=== PATIENT | female | born 1945 | race Caucasian/White ===

== ENCOUNTER 2019-12-06 15:53 | Inpatient (IN) | payer MEDICARE ==
[2019-12-06] MEDS ORDERED: traMADol HCl 50 MG TAB PO PRN ×2 (16:56→16:59)
[2019-12-06] MEDS ORDERED: Bisacodyl 10 MG SUPP PR PRN (16:56)
[2019-12-06] MEDS: traMADol HCl 50 MG TAB PO PRN (18:21)
[2019-12-06] MEDS ORDERED: Insulin Regular 300 UNITS/3 ML VIAL SC SCH (21:00)
[2019-12-06] MEDS ORDERED: Dextrose 5% in Water 1,000 ML IV PRN (21:45)
[2019-12-06] MEDS ORDERED: Dextrose 50% Abboject 50 ML SYRINGE IVP PRN (21:45)
[2019-12-06] MEDS: Amitriptyline HCl 25 MG TAB PO SCH (22:00)
[2019-12-06] MEDS: Digoxin 0.125 MG TAB PO SCH (22:00)
[2019-12-06] MEDS: Losartan Potassium 50 MG TAB PO SCH (22:00)
[2019-12-06] MEDS: metFORMIN 500 MG TAB PO SCH (22:00)
[2019-12-06] MEDS: Topiramate 25 MG TAB PO SCH (22:00)
[2019-12-07] MEDS: traMADol HCl 50 MG TAB PO PRN (00:45)
[2019-12-07] MEDS: Levothyroxine Sodium 88 MCG TAB PO SCH (06:08)
[2019-12-07] MEDS: Insulin Regular 300 UNITS/3 ML VIAL SC PRN ×3 (06:10→17:07)
[2019-12-07] MEDS ORDERED: Ondansetron ODT 4 MG TAB PO PRN (08:23)
[2019-12-07] MEDS: Topiramate 25 MG TAB PO SCH ×2 (08:47→20:49)
[2019-12-07] MEDS: Methocarbamol 500 MG TAB PO SCH (08:47)
[2019-12-07] MEDS: metFORMIN 500 MG TAB PO SCH ×2 (08:48→20:49)
[2019-12-07] MEDS: Gabapentin 400 MG CAP PO SCH (08:48)
[2019-12-07] MEDS: Furosemide 40 MG TAB PO SCH (08:48)
[2019-12-07] MEDS: CeleCOXIB 100 MG CAP PO SCH (08:55)
[2019-12-07] MEDS: Acetaminophen 325 MG TAB PO PRN (14:43)
[2019-12-07] MEDS: Simvastatin 10 MG TAB PO SCH (17:08)
[2019-12-07] MEDS: Losartan Potassium 50 MG TAB PO SCH (20:49)
[2019-12-07] MEDS: Amitriptyline HCl 25 MG TAB PO SCH (20:50)
[2019-12-07] MEDS: Digoxin 0.125 MG TAB PO SCH (20:50)
--- NOTE | 2019-12-07 21:22 | HP ---
HISTORY OF PRESENT ILLNESS: The patient is a 74-year-old female with past medical history of hypertension; diabetes 2, on insulin; atrial fibrillation, not on anticoagulation at this time; hyperlipidemia; GERD, with a history of lung cancer who presented originally to [place], [place], for a scheduled right shoulder revision surgery by Dr. Palacios. She had the surgery done at [facility] in [place] with no complications. She recovered well from the surgery and was having physical therapy and occupational therapy in hospital. She was transferred here to [facility] for continued inpatient physical therapy. No acute events in her previous hospital stay. She had no fevers and COVID test was negative. PAST MEDICAL HISTORY: Diabetes type 2, on insulin; atrial fibrillation; hypertension; osteoarthritis; DAVIS with CPAP usage; pancreatic cyst; history of lung cancer. PAST SURGICAL HISTORY: Appendectomy, hysterectomy, bilateral total knee replacement, history of right lung lobectomy, carpal tunnel surgery, multiple back surgeries. FAMILY HISTORY: Noncontributory. SOCIAL HISTORY: Denies current or former tobacco use. The patient reports social alcohol use and denies any illicit drug use. She is and has 1 son. She lives alone at home in [place], [place], and she is retired. Her previous activity level was independent ambulation. She was able to perform all of her ADLs with no limitations. REVIEW OF SYSTEMS: GENERAL: Denies any fever, chills, weight loss, weight gain. Denies any acute distress. HEENT: Denies any rhinorrhea or cough. Denies any vision changes or tinnitus. RESPIRATORY: Denies any shortness of breath, dyspnea on exertion. CARDIAC: Denies any palpitations, chest pain, edema. GASTROINTESTINAL: Denies nausea, vomiting, diarrhea. Does report a pancreatic cyst that was found on previous hospitalization. HOME MEDICATIONS: 1. Celecoxib 200 p.o. q.a.m. 2. Diltiazem 24-hour 180 mg p.o. daily. 3. Trulicity 0.5 mg subcu q.7 days. 4. Losartan 50 mg p.o. q.p.m. 5. Lovastatin 20 mg p.o. q.p.m. with meals. 6. Metformin 1000 mg p.o. b.i.d. 7. Robaxin 750 p.o. daily. 8. Omeprazole 40 mg p.o. daily. 9. Gabapentin 400 p.o. daily. 10. Topamax 25 mg p.o. b.i.d. 11. Amitriptyline 25 mg p.o. at bedtime. 12. Glycopyrrolate 1 mg. 13. Zolpidem 5 mg p.o. p.r.n. insomnia. 14. Metoprolol 25 p.o. b.i.d. PHYSICAL EXAMINATION: VITALS: Temperature 98.4, pulse 72, respiratory rate is 18, O2 at 94% on room air. Her initial blood pressure was 190/82 with repeat blood pressure 164/70. GENERAL: A well-appearing, well-developed 74-year-old female, in no acute distress. The patient is sitting up in her chair, ready for physical therapy. HEENT: Normocephalic, atraumatic. No rhinorrhea. Hearing grossly intact. NECK: Supple. No masses or goiters. RESPIRATIONS: Clear to auscultation bilaterally. No wheezes, rhonchi. CARDIOVASCULAR: Regular rate and rhythm. No murmurs, gallops, or rubs. No edema. No JVD. ABDOMEN: Soft, nontender to palpation. Bowel sounds positive in all 4 quadrants. No masses felt. Right arm is in a sling when I examined the patient. Right Shoulder incision site is clean, dry, and intact. ASSESSMENT: 1. Insulin-dependent diabetes type 2. 2. Hypertension. 3. Atrial fibrillation. 4. Gastroesophageal reflux disease. 5. Weakness and deconditioning secondary to right shoulder replacement requiring PT and OT services. 6. Obstructive sleep apnea with CPAP usage. PLAN: 1. A pleasant 74-year-old female who is status post right shoulder replacement. She is doing well, but requiring continued PT and OT services to get back to her previous level of functioning after this surgery. 2. I started her on insulin sliding scale. The patient takes a sliding scale of Humulin at home depending on her blood sugars. We will continue to monitor blood sugars here and may start her on a long-acting insulin as needed. CbGs at bedtime and q.a.c. Diabetic diet. 3. Continue all medications for atrial fibrillation. Patient is currently rate controlled. Monitor heart rate for any changes. 4. Gastroesophageal reflux disease. Continue GI prophylaxis. 5. Continue antihypertensives. Patient is currently slightly hypertensive. We will continue to monitor and need to add medications as required. 6. PT/OT evaluations. 7. Routine wound care to be for performed by Nursing. 8. The patient will need to have a followup on her newly found pancreatic cyst as an outpatient. We will monitor for any symptoms of exacerbation for this. 9. Continue to monitor her progression with PT and OT. Discharge planning ongoing with patient being discharged home versus SNF as she lives alone and would need extra help. We need to discuss discharge planning with the patient. Job ID: [id number] [facility]ENTER[facility]anna
[2019-12-08 05:29] LABS: #Basophils 0.1 thou/uL (0.0-0.2); #Eosinphils 0.3 thou/uL (0.0-0.7); #Lymphocytes 1.5 thou/uL (1.20-3.40); #Monocytes 0.5 thou/uL (0.11-0.59); #Neutrophils 5.1 thou/uL (1.40-6.50); %Basophils 0.7 % (0.0-1.0); %Eosinophils 3.6 % (0.0-10.0); %Lymphocytes 20.4 % (21.0-51.0); %Monocytes 7.2 % (0.0-10.0); %Neutrophils 68.1 % (42.0-75.0); Hemoglobin 11.6 g/dL (12.0-16.0); Mean Corpuscular HGB CONC 30.6 g/dL (32.0-36.0); Mean Corpuscular Hemoglobin 28.3 pg (27.0-31.0); Mean Corpuscular Volume 92.6 fL (78.0-98.0); Mean Platelet Volume 7.3 fL (7.4-10.4); Platelet Count 273 thou/uL (130-400); RBC Distribution Width 12.8 % (11.5-14.5); White Blood Cell (WBC) Count 7.5 thou/uL (4.8-10.8)
[2019-12-08 05:43] LABS: Anion Gap 14 mmol/L (10-20); BUN (Urea Nitrogen) 18 mg/dL (9.8-20.1); Calc. Creatinine Clearance 95 mL/min (70-130); Calcium 9.2 mg/dL (7.8-10.44); Carbon Dioxide 26 mmol/L (23-31); Chloride 100 mmol/L (98-107); Estimated GFR-MDRD 75; Glucose 165 mg/dL (83-110); Potassium 4.2 mmol/L (3.5-5.1); Sodium 136 mmol/L (136-145)
[2019-12-08] MEDS: Levothyroxine Sodium 88 MCG TAB PO SCH (05:49)
[2019-12-08] MEDS: Insulin Regular 300 UNITS/3 ML VIAL SC PRN ×2 (05:49→17:29)
[2019-12-08] MEDS: Topiramate 25 MG TAB PO SCH ×2 (08:32→20:00)
[2019-12-08] MEDS: Acetaminophen 325 MG TAB PO PRN (08:32)
[2019-12-08] MEDS: Methocarbamol 500 MG TAB PO SCH (08:32)
[2019-12-08] MEDS: CeleCOXIB 100 MG CAP PO SCH (08:33)
[2019-12-08] MEDS: Gabapentin 400 MG CAP PO SCH (08:33)
[2019-12-08] MEDS: metFORMIN 500 MG TAB PO SCH ×2 (08:33→20:00)
[2019-12-08] MEDS: Furosemide 40 MG TAB PO SCH (08:33)
[2019-12-08] MEDS: Simvastatin 10 MG TAB PO SCH ×2 (17:05→20:04)
[2019-12-08] MEDS: Amitriptyline HCl 25 MG TAB PO SCH (20:00)
[2019-12-08] MEDS: Digoxin 0.125 MG TAB PO SCH (20:00)
[2019-12-08] MEDS: Losartan Potassium 50 MG TAB PO SCH (20:01)
[2019-12-08] MEDS: traMADol HCl 50 MG TAB PO PRN (20:01)
[2019-12-09] MEDS: traMADol HCl 50 MG TAB PO PRN (03:22)
[2019-12-09] MEDS: Acetaminophen 325 MG TAB PO PRN ×2 (03:22→16:23)
[2019-12-09] MEDS: Levothyroxine Sodium 88 MCG TAB PO SCH (05:52)
[2019-12-09] MEDS: Insulin Regular 300 UNITS/3 ML VIAL SC PRN ×2 (05:52→12:30)
[2019-12-09] MEDS: Furosemide 40 MG TAB PO SCH (08:50)
[2019-12-09] MEDS: Topiramate 25 MG TAB PO SCH ×2 (08:50→20:58)
[2019-12-09] MEDS: Gabapentin 400 MG CAP PO SCH (08:50)
[2019-12-09] MEDS: metFORMIN 500 MG TAB PO SCH ×2 (08:50→20:58)
[2019-12-09] MEDS: Methocarbamol 500 MG TAB PO SCH (08:51)
[2019-12-09] MEDS: CeleCOXIB 100 MG CAP PO SCH (08:52)
--- NOTE | 2019-12-09 10:59 | PRG ---
DATE OF SERVICE: 12/08/[address] Jordy Nair. SUBJECTIVE: The patient is up out of the room and ambulating. She is here for PT for right shoulder revision surgery. She has type 2 diabetes, being monitored with Accu-Cheks, on sliding scale. She has hypertension, atrial fibrillation on rate control only. No history of recent or distant transient ischemic attack or cerebrovascular accident . OBJECTIVE: VITAL SIGNS: Blood pressure is 171/84, temperature is 98, pulse 71, respirations 18, and O2 saturations 95% on room air. LABORATORY DATA: Laboratory show the Accu-Cheks not transferring to [employer], but are less than 200. Fasting glucose this morning was 165. Sodium 136, potassium 4.2, chloride 100, bicarb 26, BUN 18, creatinine 0.75. White count 7500, hematocrit 37, and hemoglobin 11.6. ASSESSMENT: 1. shoulder revision. 2. Type 2 diabetes with fair control. 3. Hypertension with inadequate control on metoprolol and losartan. Plan, increase losartan to 100 mg nightly. 4. Continue Accu-Cheks with moderate sliding scale and metformin, and may need to add another oral hypoglycemic. 5. Obstructive sleep apnea, on CPAP. 6. Atrial fibrillation on rate control, no anticoagulation. PLAN: 1. Continue Accu-Cheks and sliding scale, metformin, and Trulicity. 2. Continue to monitor and control blood pressure. 3. Continue rate control and monitor for need for anticoagulation of atrial fibrillation. 4. Continue pain relief as needed for right shoulder replacement and PT/OT. 5. Continue to stress CPAP for obstructive sleep apnea. Job ID: [id number]
[2019-12-09] MEDS: Simvastatin 10 MG TAB PO SCH (16:23)
[2019-12-09 18:25] VITALS: BMI 31.4
[2019-12-09] MEDS: Digoxin 0.125 MG TAB PO SCH (20:57)
[2019-12-09] MEDS: Amitriptyline HCl 25 MG TAB PO SCH (20:58)
[2019-12-09] MEDS: Losartan Potassium 50 MG TAB PO SCH (20:58)
[2019-12-10] MEDS: Insulin Regular 300 UNITS/3 ML VIAL SC PRN ×4 (05:44→20:31)
[2019-12-10] MEDS: Levothyroxine Sodium 88 MCG TAB PO SCH (05:45)
[2019-12-10] MEDS: metFORMIN 500 MG TAB PO SCH ×2 (08:22→20:35)
[2019-12-10] MEDS: Gabapentin 400 MG CAP PO SCH (08:22)
[2019-12-10] MEDS: Methocarbamol 500 MG TAB PO SCH (08:22)
[2019-12-10] MEDS: Furosemide 40 MG TAB PO SCH (08:22)
[2019-12-10] MEDS: Topiramate 25 MG TAB PO SCH ×2 (08:23→20:36)
[2019-12-10] MEDS: CeleCOXIB 100 MG CAP PO SCH (08:26)
--- NOTE | 2019-12-10 13:07 | PRG ---
DATE OF SERVICE: 12/10/2019 SUBJECTIVE: The patient is a pleasant 74-year-old female, here for inpatient PT and OT status post right shoulder replacement. She is doing well with therapy. She is up and ambulating. Working well with therapy and she is enjoying her time here. She does feel like she is getting stronger and feels like she might be ready to go tomorrow. I discussed with her that they will have a meeting with PT and OT and determine if they feel she is ready to go or if she might require more days. She expressed understanding with this and would like to know the results of that beginning tomorrow. I said that we will let her know. Otherwise, doing well, no complaints. OBJECTIVE: VITAL SIGNS: Temperature 98.2, pulse 61, respiratory rate 20, O2 sats 94% on room air, blood pressure ranging from 131/85 to 186/81. GENERAL: Well-appearing 74-year-old female, in no acute distress. HEENT: No rhinorrhea, no coughing during exam. RESPIRATORY: Clear to auscultation bilaterally. No wheezes or rhonchi. CARDIOVASCULAR: Heart rate is irregularly irregular with controlled heart rate. No JVD. No murmurs, gallops, or rubs. GI: Nontender. Bowel sounds present in all 4 quadrants. No masses. EXTREMITIES: Right shoulder in sling with right shoulder incision clean, dry, and intact. LABORATORY DATA: No new labs today. We will get labs tomorrow. Sugars have been running from 150s to 170s, she got 2 units of insulin last night per sliding scale. ASSESSMENT: 1. Status post right shoulder revision. 2. Type 2 diabetes with moderate control. 3. Hypertension with inadequate control, on metoprolol and losartan. 4. Obstructive sleep apnea. 5. Atrial fibrillation. 6. Gastroesophageal reflux disease. PLAN: 1. Continue insulin sliding scale for diabetes and continue the patient's metformin and Trulicity. 2. The patient's blood pressure continues to be elevated. We will adjust blood pressure medications today. Continue rate control with atrial fibrillation. We will need to determine when best to start the patient back on anticoagulation due to the surgery. 3. Continue pain relief and continue PT and OT. Follow up on PT/OT meeting tomorrow. 4. High blood pressure could be component of her DAVIS; however, the patient does normally use CPAP here. We will continue her oxygen per nasal cannula p.r.n. 5. The patient is doing well and progressing well in physical therapy. We will follow up with physical therapy meeting tomorrow to see what her discharge planning is and determining if she will need home health when she is discharged as well. Job ID: [id number] [facility]TDD
[2019-12-10] MEDS: Simvastatin 10 MG TAB PO SCH (17:36)
--- NOTE | 2019-12-10 19:24 | PRG ---
DATE OF SERVICE: 12/09/2019 SUBJECTIVE: The patient feels well. No complaints. Up, working with therapy today. Up, out of the room today, waiting for more therapy. OBJECTIVE: VITAL SIGNS: Show temperature 98.3, pulse 66, respirations 20, O2 saturations 96% on room air, blood pressure 131/85. Accu-Cheks ranged from 160 to 200. LUNGS: Clear. EXTREMITIES: Right shoulder is in a sling, incision clean and dry. CARDIAC: Shows irregularly irregular rhythm. ASSESSMENT: 1. Type 2 diabetes, fair control. 2. Right shoulder revision, fair control of pain. 3. Hypertension, uncontrolled, and we will possibly increase when Dr. Nair returns. 4. Obstructive sleep apnea, stable. 5. Gastroesophageal reflux, asymptomatic. 6. Dr. Nair back tonight. Job ID: [id number]
[2019-12-10] MEDS: Losartan Potassium 50 MG TAB PO SCH (20:35)
[2019-12-10] MEDS: Digoxin 0.125 MG TAB PO SCH (20:36)
[2019-12-10] MEDS: Amitriptyline HCl 25 MG TAB PO SCH (20:36)
[2019-12-11] MEDS: traMADol HCl 50 MG TAB PO PRN ×2 (04:32→21:31)
[2019-12-11] MEDS: Acetaminophen 325 MG TAB PO PRN (04:32)
[2019-12-11] MEDS: Levothyroxine Sodium 88 MCG TAB PO SCH (05:07)
[2019-12-11 05:28] LABS: #Basophils 0.1 thou/uL (0.0-0.2); #Eosinphils 0.3 thou/uL (0.0-0.7); #Lymphocytes 2.5 thou/uL (1.20-3.40); #Monocytes 0.6 thou/uL (0.11-0.59); #Neutrophils 6.8 thou/uL (1.40-6.50); %Basophils 0.9 % (0.0-1.0); %Eosinophils 2.9 % (0.0-10.0); %Lymphocytes 24.3 % (21.0-51.0); %Monocytes 6.1 % (0.0-10.0); %Neutrophils 65.8 % (42.0-75.0); Hemoglobin 11.9 g/dL (12.0-16.0); Mean Corpuscular HGB CONC 31.5 g/dL (32.0-36.0); Mean Corpuscular Volume 91.9 fL (78.0-98.0); Mean Platelet Volume 6.7 fL (7.4-10.4); Platelet Count 323 thou/uL (130-400); RBC Distribution Width 12.6 % (11.5-14.5); Red Blood Cell (RBC) Count 4.12 mill/uL (4.20-5.40); White Blood Cell (WBC) Count 10.3 thou/uL (4.8-10.8)
[2019-12-11 05:42] LABS: Anion Gap 15 mmol/L (10-20); BUN (Urea Nitrogen) 19 mg/dL (9.8-20.1); Calc. Creatinine Clearance 80 mL/min (70-130); Calcium 9.4 mg/dL (7.8-10.44); Chloride 101 mmol/L (98-107); Estimated GFR-MDRD 67; Glucose 195 mg/dL (83-110); Potassium 3.9 mmol/L (3.5-5.1); Sodium 136 mmol/L (136-145)
[2019-12-11 05:56] LABS: Carbon Dioxide 24 mmol/L (23-31)
[2019-12-11] MEDS: Insulin Regular 300 UNITS/3 ML VIAL SC PRN ×3 (05:58→20:12)
[2019-12-11] MEDS: CeleCOXIB 100 MG CAP PO SCH (08:23)
[2019-12-11] MEDS: Methocarbamol 500 MG TAB PO SCH (08:24)
[2019-12-11] MEDS: Furosemide 40 MG TAB PO SCH (08:24)
[2019-12-11] MEDS: metFORMIN 500 MG TAB PO SCH ×2 (08:24→20:14)
[2019-12-11] MEDS: Gabapentin 400 MG CAP PO SCH (08:24)
[2019-12-11] MEDS: Topiramate 25 MG TAB PO SCH ×2 (08:25→20:14)
[2019-12-11] MEDS ORDERED: Ondansetron ODT 4 MG TAB SL PRN (11:30)
[2019-12-11] MEDS ORDERED: hydrALAZINE 25 MG TAB PO SCH (12:45)
[2019-12-11] MEDS: Nystatin Cream 15 GM TUBE TOP SCH ×2 (14:09→20:16)
[2019-12-11] MEDS: Simvastatin 10 MG TAB PO SCH (17:00)
[2019-12-11] MEDS: Losartan Potassium 50 MG TAB PO SCH (20:14)
[2019-12-11] MEDS: Digoxin 0.125 MG TAB PO SCH (20:15)
[2019-12-11] MEDS: Amitriptyline HCl 25 MG TAB PO SCH (20:15)
[2019-12-12] MEDS: Insulin Regular 300 UNITS/3 ML VIAL SC PRN ×4 (05:52→20:50)
[2019-12-12] MEDS: Levothyroxine Sodium 88 MCG TAB PO SCH (05:53)
[2019-12-12] MEDS: metFORMIN 500 MG TAB PO SCH ×2 (08:37→20:51)
[2019-12-12] MEDS: Furosemide 40 MG TAB PO SCH (08:38)
[2019-12-12] MEDS: Topiramate 25 MG TAB PO SCH ×2 (08:38→20:53)
[2019-12-12] MEDS: Gabapentin 400 MG CAP PO SCH (08:38)
[2019-12-12] MEDS: Methocarbamol 500 MG TAB PO SCH (08:38)
[2019-12-12] MEDS: hydrALAZINE 25 MG TAB PO SCH (08:38)
[2019-12-12] MEDS: CeleCOXIB 100 MG CAP PO SCH (08:39)
[2019-12-12] MEDS: Nystatin Cream 15 GM TUBE TOP SCH ×2 (08:40→20:51)
[2019-12-12] MEDS: Simvastatin 10 MG TAB PO SCH (16:34)
[2019-12-12] MEDS: Losartan Potassium 50 MG TAB PO SCH (20:51)
[2019-12-12] MEDS: Digoxin 0.125 MG TAB PO SCH (20:53)
[2019-12-12] MEDS: Amitriptyline HCl 25 MG TAB PO SCH (20:53)
[2019-12-12] MEDS ORDERED: Insulin Glargine 5 UNITS in Pre-Filled Syringe 1 EACH SC SCH (21:00)
[2019-12-12] MEDS ORDERED: Lantus 1000 UNITS/10 ML VIAL SC SCH (21:00)
[2019-12-12] MEDS: traMADol HCl 50 MG TAB PO PRN (21:28)
[2019-12-13] MEDS: Insulin Regular 300 UNITS/3 ML VIAL SC PRN ×2 (05:28→11:56)
[2019-12-13] MEDS: Levothyroxine Sodium 88 MCG TAB PO SCH (05:28)
[2019-12-13 08:02] VITALS: BP 179/75; TEMP 97.4
[2019-12-13] MEDS: metFORMIN 500 MG TAB PO SCH (09:11)
[2019-12-13] MEDS: Furosemide 40 MG TAB PO SCH (09:11)
[2019-12-13] MEDS: hydrALAZINE 25 MG TAB PO SCH (09:11)
[2019-12-13] MEDS: Gabapentin 400 MG CAP PO SCH (09:11)
[2019-12-13] MEDS: CeleCOXIB 100 MG CAP PO SCH (09:12)
[2019-12-13] MEDS: Methocarbamol 500 MG TAB PO SCH (09:12)
[2019-12-13] MEDS: Topiramate 25 MG TAB PO SCH (09:12)
[2019-12-13] MEDS: Nystatin Cream 15 GM TUBE TOP SCH (09:13)
--- NOTE | 2019-12-13 16:56 | PRG ---
DATE OF SERVICE: 12/11/2019 SUBJECTIVE: The patient is a pleasant 74-year-old female, here for inpatient PT and OT status post right shoulder replacement. The patient is doing really well. She is participating well with physical therapy and is progressing with those therapies. She is anxious to get home and is wondering today what the discharge planning is at this time. I had discussed that we will know more after the PT and OT meeting that occurs on Tuesdays. Otherwise, doing well. No complaints. Pain is well controlled. OBJECTIVE: VITAL SIGNS: Today temperature 97.5, pulse 57, respiratory rate 20, O2 saturations 95% on room air, blood pressure ranges from 157/70 to 176/85. GENERAL: Well-appearing 74-year-old female, in no acute distress. HEENT: No rhinorrhea. No cough. RESPIRATORY: Clear to auscultation bilaterally. No wheezes or rhonchi. CARDIOVASCULAR: Regular rate and rhythm. No murmurs, gallops, or rubs. NECK: No JVD. GI: Nontender. Bowel sounds present in all 4 quadrants. No masses. EXTREMITIES: Right shoulder is in sling with the previous incision that is clean, dry, and intact. LABORATORY WORK: White cells 10.3, hemoglobin and hematocrit 11.9 and 37.8, platelets 323. ASSESSMENT: 1. Status post right shoulder revision. 2. Weakness secondary to above. 3. Type 2 diabetes, moderate control. 4. Hypertension with inadequate control at this time. 5. Obstructive sleep apnea. 6. Atrial fibrillation. 7. Gastroesophageal reflux disease. PLAN: 1. Plan is to continue insulin with sliding scale for diabetes and continue the patient's metformin and Trulicity. Her sugars have been moderately controlled ranging from 146 to 195. 2. We will continue the patient on her metoprolol and losartan; however, we will add hydralazine and continue to monitor her blood pressure. 3. Continue pain relief and PT and OT Services. Follow up with PT and OT meeting. 4. High blood pressure could be a component of her DAVIS; however, the patient does normally use the CPAP here. She will continue her CPAP when she gets home and monitor blood pressure to see if this will help. 5. Overall, the patient is doing very well and progressing well in physical therapy. We will continue to follow up Physical Therapy and adjust her discharge planning accordingly. Job ID: [id number]
--- NOTE | 2019-12-13 17:09 | PRG ---
DATE OF SERVICE: 12/12/2019 SUBJECTIVE: The patient is a pleasant 74-year-old female here for inpatient PT and OT, status post right shoulder replacement. The patient continues to do really well in therapy and is progressing towards all of her goals well. The patient would like to have home health continued as well and I feel this is appropriate for her. We will work to get home health set up for her to get home physical therapy. Her blood pressure remains high, she states that she is not quite comfortable with pain and being in an unfamiliar environment. She feels that her blood pressure will come back down when she gets home and she is back into her normal environment and as the pain continues to subside. She denies any headache, blurry vision, or other signs and symptoms with her high blood pressure. OBJECTIVE: VITAL SIGNS: Temperature 98.2, pulse ranging 60 to 63, respiratory rate 16 to 20, O2 saturations 92% on room air. Blood pressure ranged from 140/68 to 181/79. No new labs today. Blood glucose ranging from 157 to 265. ASSESSMENT: 1. Status post right shoulder replacement. 2. Weakness secondary to above. 3. Type 2 diabetes with moderate control. 4. Hypertension with better control on hydralazine, losartan, and metoprolol. 5. Obstructive sleep apnea. 6. Atrial fibrillation. 7. Gastroesophageal reflux disease. PLAN: 1. Continue insulin sliding scale as well as oral diabetes medications. We will add on 5 units of glargine tonight and monitor the patient's blood glucose. 2. The patient's blood pressure is better today, however, labile. This could possibly be due to the stress of being in a foreign environment and having the pain from the surgery. The pain medications here are helping with the pain and help control them. However, the patient does have a mild amount of constant pain. 3. Again, high blood pressure could be a component of her DAVIS. She will restart her CPAP once she gets home. 4. Continue pain relief and continue PT and OT. Physical Therapy feels that the patient would be appropriate to be discharged on after home health has been set up. 5. Overall, the patient is doing well and progressing well in physical therapy. We will plan to have discharge on 12/12 with home health set up. Job ID: [id number] [facility]
--- NOTE | 2019-12-14 07:02 | DIS ---
DATE OF ADMISSION: 12/06/2019 DATE OF DISCHARGE: 12/13/2019 ADMISSION DIAGNOSIS: Weakness secondary to right shoulder replacement requiring PT and OT services. DISCHARGE DIAGNOSIS: Weakness secondary to right shoulder replacement requiring PT and OT services. SECONDARY DIAGNOSES: Type 2 diabetes, moderate control; hypertension with moderate control; obstructive sleep apnea; atrial fibrillation; gastroesophageal reflux disease. CONSULTATIONS: None. PROCEDURES: None. HISTORY OF PRESENT ILLNESS: A 74-year-old female, here for inpatient PT and OT services status post right shoulder replacement. The patient recovered well from replacement at [facility], and was transferred here for continued inpatient PT and OT services. BRIEF HOSPITAL COURSE: This patient improved well over the time here at [facility]. Patient was very active in PT and OT sessions and has made great improvement since being admitted. She still has her shoulder sling in place and has become more comfortable. Throughout her stay, her incision has remained clean, dry, and intact. No complications with the incision or with surgery recovery. The patient will be discharged home with home health PT, OT services to help with patient's recovery. PHYSICAL EXAMINATION: VITALS: On day of discharge, temperature 97.4, pulse ranging 59 to 63, respiratory rate 16, O2 sats 95% on room air, BP 179/75. LABORATORY DATA: No pending labs. DISCHARGE DISPOSITION: The patient will be discharged home with home health for continued PT and OT services. As far as her blood pressure, patient states that her blood pressure has always been well controlled at home and she feels that her blood pressure has been elevated here because of the pain involved with recovering from surgery as well as being in an unfamiliar environment. She states that she is comfortable with going home with a blood pressure where it is, and I advised her to return to the ER if her blood pressure does not go down when she is at home. The patient denies any symptoms of stroke, including blurry vision, facial droop, or unilateral weakness. Patient expressed understanding and is okay with being discharged today. I recommended that patient restart her CPAP when she gets home as this could also help with her blood pressure. Patient can discontinue hydralazine if BP goes below 100/70. DISCHARGE MEDICATIONS: Topamax 25 mg b.i.d., Senokot 2 tabs p.o. b.i.d., insulin regular sliding scale, lovastatin 20 mg p.o. q.p.m., Trulicity 0.75 mg subcu q.7 days, omeprazole 40 mg p.o. daily, methocarbamol 750 mg p.o. daily, switched the metformin to repaglinide/metformin 2-500 mg one each p.o. t.i.d., metoprolol 25 mg p.o. b.i.d., levothyroxine 88 mcg p.o. daily, Glimepiride 4 mg p.o. daily, digoxin 0.125 mg p.o. q.p.m., diltiazem 180 mg p.o. daily, amitriptyline 25 mg p.o. at bedtime, gabapentin 400 p.o. daily, Lasix 40 p.o. daily, Celebrex 200 p.o. q.a.m. New medications on discharge: Hydralazine 25 mg p.o. QID, nystatin one application topical b.i.d., losartan 100 mg p.o. daily. DISCHARGE DIET: Diabetic diet. FOLLOWUP APPOINTMENTS: Orthopedic Surgery, PCP. DISCHARGE INSTRUCTIONS: Nonweightbearing on the right shoulder until evaluated by PT with home health. Job ID: [id number] [facility]TDD
== END 2019-12-13 16:20 | disposition home health service (06) | DRG 561 ==
LOC: NAV ACUTE 15:53
PROVIDERS: ADMIT Family Medicine; ATTEND Family Medicine
DX: Z47.1 Aftercare following joint replacement surgery (principal); E11.9 Type 2 diabetes mellitus without complications; I10 Essential (primary) hypertension; G47.33 Obstructive sleep apnea (adult) (pediatric); I48.91 Unspecified atrial fibrillation; K21.9 Gastro-esophageal reflux disease without esophagitis; E78.5 Hyperlipidemia, unspecified; Z96.653 Presence of artificial knee joint, bilateral; R53.81 Other malaise; Z79.4 Long term (current) use of insulin; Z90.49 Acquired absence of other specified parts of digestive tract; Z90.710 Acquired absence of both cervix and uterus; Z85.118 Personal history of other malignant neoplasm of bronchus and lung; Z98.890 Other specified postprocedural states
CPT/HCPCS: 36416; 80048; 85025; J1815